=== PATIENT | female | born 1950 | race African-American/Black ===

== ENCOUNTER → 2018-07-28 11:23 | Outpatient (CLI) | payer OTHER, SELFPAY ==
--- NOTE | 2018-07-28 | DI.MG.S_ITS ---
BILATERAL DIGITAL SCREENING MAMMOGRAM 3D/2D WITH CAD POST LUMPECTOMY: 07/28/2018 CLINICAL: Routine screening. Personal history of left breast cancer. Comparison is made to exams dated: 07/01/2017 mammogram, 06/19/2016 mammogram, and 06/18/2015 mammogram - [facility]. There are scattered fibroglandular elements in both breasts. Current study was also evaluated with a Computer Aided Detection (CAD) system. There are benign post operative findings in the left breast with peripherally rim calcified fat necrosis noted. There also are benign vascular calcifications in the right breast. No significant masses, calcifications, or other findings are seen in either breast. There has been no significant interval change. IMPRESSION: There is no mammographic evidence of malignancy. A 1 year screening mammogram is recommended. This exam was interpreted at Station ID: [id number]. NOTE: For mammograms, a report in lay terms will be sent to the patient. Approximately 15% of breast malignancies will not be visualized mammographically. In the management of a palpable breast mass, a negative mammogram must not discourage biopsy of a clinically suspicious lesion. Electronically Signed By: Jaret Saab M.D. ecl/:07/28/2018 17:27:06 copy to: LUIS ENRIQUE ALEXIS copy to: SARAH MCCULLOUGH letter sent: Normal Exam ACR BI-RADS Category 2: Benign Finding(s) 3342F
== END ==
PROVIDERS: Family Provider Nurse Practitioner Gerontology; PCP Internal Medicine Hematology & Oncology; Visit Provider Family Medicine
DX: Z12.31 Encounter for screening mammogram for malignant neoplasm of breast (principal); Z85.3 Personal history of malignant neoplasm of breast
CPT/HCPCS: 77063; 77067

== ENCOUNTER → 2018-12-26 09:35 | Outpatient (CLI) | payer OTHER, SELFPAY ==
--- NOTE | 2018-12-26 09:37 | DI.US.S_ITS ---
LIMITED ULTRASOUND OF LEFT BREAST: 12/26/2018 CLINICAL: Palpable left breast lump. Palpable left breast lump by physician. Comparison is made to exams dated: 07/28/2018 mammogram, 07/01/2017 mammogram, 06/19/2016 mammogram, 08/13/2015 breast MRI, 06/18/2015 mammogram, and 01/25/2015 mammogram - [facility]. Color flow and real-time ultrasound of the left breast 1-3 o'clock region were performed on the areas of interest. There is a benign 3.1 cm x 2 cm x 1.9 cm peripherally calcified oval mass with indistinct margins in the left breast at 3 o'clock anterior depth. This oval mass is hyperechoic with posterior acoustic shadowing. This correlates as palpated and with mammography findings. Color flow imaging demonstrates that there is no vascularity present. There also is a benign irregular post-surgical scar with indistinct margins in the left breast at 1:30 o'clock posterior depth. This irregular post-surgical scar is hypoechoic and extends to the skin. This correlates as palpated. Color flow imaging demonstrates that there is no vascularity present. IMPRESSION: BENIGN There is no sonographic evidence of malignancy. The 3.1 cm x 2 cm x 1.9 cm oval mass in the left breast at 3 o'clock anterior depth is consistent with fat necrosis and is benign. The irregular post-surgical scar in the left breast at 1:30 o'clock posterior depth is benign. There is no abnormality seen in the left breast to correspond with the palpable abnormality at 2 o'clock. Clinical followup is recommended of palpable abnormalities. A 1 year screening mammogram is recommended. This exam was interpreted at Station ID: [id number]. Electronically Signed By: Gera Villalobos M.D. ddvince/:12/27/2018 09:05:53 copy to: LUIS ENRIQUE ALEXIS copy to: SARAH MCCULLOUGH letter sent: Clinical Evaluation Ultrasound BI-RADS: 2 Benign
== END ==
PROVIDERS: Family Provider Family Medicine; PCP Family Medicine; Visit Provider Internal Medicine Hematology & Oncology
DX: D05.10 Intraductal carcinoma in situ of unspecified breast (principal)
CPT/HCPCS: 76642

== ENCOUNTER → 2019-09-30 14:07 | Outpatient (CLI) | payer OTHER, SELFPAY ==
--- NOTE | 2019-09-30 14:08 | DI.MG.S_ITS ---
BILATERAL DIGITAL SCREENING MAMMOGRAM 3D/2D WITH CAD POST LUMPECTOMY: 09/30/2019 CLINICAL: Routine screening. Personal history of left breast cancer. Comparison is made to exams dated: 07/28/2018 mammogram, 07/01/2017 mammogram, and 06/19/2016 mammogram - [facility]. There are scattered fibroglandular elements in both breasts. Current study was also evaluated with a Computer Aided Detection (CAD) system. There are benign calcifications in the left breast. There also are benign vascular calcifications in the right breast. Additionally, there are benign post operative findings in the left breast. No significant masses, calcifications, or other findings are seen in either breast. There has been no significant interval change. IMPRESSION: There is no mammographic evidence of malignancy. A 1 year screening mammogram is recommended. This exam was interpreted at Station ID: [id number]. NOTE: For mammograms, a report in lay terms will be sent to the patient. Approximately 15% of breast malignancies will not be visualized mammographically. In the management of a palpable breast mass, a negative mammogram must not discourage biopsy of a clinically suspicious lesion. Electronically Signed By: oM villagomez/marilyn:10/02/2019 08:18:48 copy to: Stephen Victor copy to: SARAH MCCULLOUGH letter sent: Normal Exam ACR BI-RADS Category 2: Benign Finding(s) 3342F
== END ==
PROVIDERS: Family Provider Family Medicine; PCP Family Medicine; Referring Provider Family Medicine; Visit Provider Internal Medicine Hematology & Oncology
DX: Z12.31 Encounter for screening mammogram for malignant neoplasm of breast (principal); Z85.3 Personal history of malignant neoplasm of breast
CPT/HCPCS: 77063; 77067

== ENCOUNTER → 2020-06-04 10:11 | Outpatient (CLI) | payer OTHER, SELFPAY | PROVIDERS: Family Provider Family Medicine; PCP Family Medicine; Referring Provider Family Medicine; Visit Provider Family Medicine | DX: Z78.0 Asymptomatic menopausal state (principal); Z85.3 Personal history of malignant neoplasm of breast | CPT/HCPCS: 77080 ==

== ENCOUNTER → 2020-10-03 11:11 | Outpatient (CLI) | payer OTHER, SELFPAY ==
--- NOTE | 2020-10-03 11:12 | DI.MG.S_ITS ---
BILATERAL DIGITAL SCREENING MAMMOGRAM 3D/2D WITH CAD: 10/03/2020 CLINICAL: Routine screening. Personal history of left breast cancer. Comparison is made to exams dated: 09/30/2019 mammogram, 07/28/2018 mammogram, and 07/01/2017 mammogram - [facility]. There are scattered fibroglandular elements in both breasts. Current study was also evaluated with a Computer Aided Detection (CAD) system. There are benign calcifications in the left breast. There also are benign vascular calcifications in the right breast. Additionally, there are benign post operative findings in the left breast. No significant masses, calcifications, or other findings are seen in either breast. There has been no significant interval change. IMPRESSION: BENIGN There is no mammographic evidence of malignancy. A 1 year screening mammogram is recommended. This exam was interpreted at Station ID: [id number]. NOTE: For mammograms, a report in lay terms will be sent to the patient. Approximately 15% of breast malignancies will not be visualized mammographically. In the management of a palpable breast mass, a negative mammogram must not discourage biopsy of a clinically suspicious lesion. Electronically Signed By: Samantha mcclellan/marilyn:10/03/2020 13:44:15 copy to: Stephen Victor copy to: SARAH MCCULLOUGH letter sent: Normal Exam ACR BI-RADS Category 2: Benign Finding(s) 3342F
== END ==
PROVIDERS: Family Provider Family Medicine; PCP Family Medicine; Referring Provider Internal Medicine Hematology & Oncology; Visit Provider Internal Medicine Hematology & Oncology
DX: Z12.31 Encounter for screening mammogram for malignant neoplasm of breast (principal); D05.12 Intraductal carcinoma in situ of left breast
CPT/HCPCS: 77063; 77067

== ENCOUNTER → 2021-10-09 12:41 | Outpatient (CLI) | payer OTHER, SELFPAY ==
--- NOTE | 2021-10-09 12:43 | DI.MG.S_ITS ---
BILATERAL DIGITAL SCREENING MAMMOGRAM 3D/2D WITH CAD POST LUMPECTOMY: 10/09/2021 CLINICAL: Routine screening. Personal history of left breast cancer. Comparison is made to exams dated: 10/03/2020 mammogram, 09/30/2019 mammogram, 07/28/2018 mammogram, 07/01/2017 mammogram, and 06/19/2016 mammogram - [facility]. There are scattered fibroglandular elements in both breasts. Current study was also evaluated with a Computer Aided Detection (CAD) system. There are benign calcifications in the left breast. There also are benign vascular calcifications in the right breast. Additionally, there are benign post operative findings in the left breast. No significant masses, calcifications, or other findings are seen in either breast. There has been no significant interval change. IMPRESSION: BENIGN There is no mammographic evidence of malignancy. A 1 year screening mammogram is recommended. This exam was interpreted at Station ID: [id number]. NOTE: For mammograms, a report in lay terms will be sent to the patient. Approximately 15% of breast malignancies will not be visualized mammographically. In the management of a palpable breast mass, a negative mammogram must not discourage biopsy of a clinically suspicious lesion. Electronically Signed By: Teddy barnard/marilyn:10/09/2021 13:29:05 copy to: Stephen Victor copy to: SARAH MCCULLOUGH letter sent: Normal Exam ACR BI-RADS Category 2: Benign Finding(s) 3342F
== END ==
PROVIDERS: Family Provider Family Medicine; PCP Family Medicine; Referring Provider Internal Medicine Hematology & Oncology; Visit Provider Internal Medicine Hematology & Oncology
DX: Z12.31 Encounter for screening mammogram for malignant neoplasm of breast (principal); Z86.000 Personal history of in-situ neoplasm of breast
CPT/HCPCS: 77063; 77067

== ENCOUNTER → 2022-10-15 09:53 | Outpatient (CLI) | payer OTHER, SELFPAY ==
--- NOTE | 2022-10-15 09:54 | DI.MG.S_ITS ---
BILATERAL DIGITAL SCREENING MAMMOGRAM 3D/2D WITH CAD: 10/15/2022 CLINICAL: Routine screening. Personal history of left breast cancer. Comparison is made to exams dated: 10/09/2021 mammogram, 10/03/2020 mammogram, 09/30/2019 mammogram, and 07/28/2018 mammogram - [facility]. There are scattered areas of fibroglandular density in both breasts (category b / 25%-50% glandular tissue). Current study was also evaluated with a Computer Aided Detection (CAD) system. There are benign calcifications in the left breast. There also are benign vascular calcifications in the right breast. Additionally, there are benign post operative findings in the left breast. No significant masses, calcifications, or other findings are seen in either breast. There has been no significant interval change. IMPRESSION: BENIGN There is no mammographic evidence of malignancy. A 1 year screening mammogram is recommended. This exam was interpreted at Station ID: [id number]. NOTE: For mammograms, a report in lay terms will be sent to the patient. Approximately 15% of breast malignancies will not be visualized mammographically. In the management of a palpable breast mass, a negative mammogram must not discourage biopsy of a clinically suspicious lesion. Electronically Signed By: Teddy barnard/marilyn:10/15/2022 13:25:09 copy to: Stephen Victor copy to: SARAH MCCULLOUGH letter sent: Normal Exam ACR BI-RADS Category 2: Benign Finding(s) 3342F
== END ==
PROVIDERS: Family Provider Family Medicine; PCP Nurse Practitioner; Referring Provider Nurse Practitioner; Visit Provider Nurse Practitioner
DX: Z12.31 Encounter for screening mammogram for malignant neoplasm of breast (principal); D05.12 Intraductal carcinoma in situ of left breast
CPT/HCPCS: 77063; 77067

== ENCOUNTER → 2023-06-15 12:26 | Outpatient (CLI) | payer OTHER, SELFPAY ==
--- NOTE | 2023-06-15 | DI.RAD.S_ITS ---
Bone Density Report Name: JOHNY AVILA Age: 72 Sex: Female Ethnicity: Black Date of : 1950 Indication: postmenopausal; screening for osteoporosis; Referring Provider: WILL JENKINS Study: Bone densitometry was performed. Exam Date: June 15, 2023 Accession number: [id number] Bone Density: Region BMD T-score Z-score Classification AP Spine(L1, L2, L3) 1.280 2.4 4.1 Normal Femoral Neck (Left) 0.783 -0.6 0.4 Normal Total Hip (Left) 0.893 -0.4 0.4 Normal Femoral Neck (Right) 0.858 0.1 0.9 Normal Total Hip (Right) 0.857 -0.7 0.2 Normal Total Hip Mean 0.875 -0.6 0.3 Normal World Health Organization criteria for BMD impression classify patients as: Normal (T-score at or above -1.0), Osteopenia (T-score between -1.0 and -2.5), or Osteoporosis (T-score at or below -2.5). 10-year Fracture Risk: FRAX not reported because: All T-scores for Spine Total, Hip Total, Femoral Neck at or above -1.0 Previous Exams: -- Region Exam Age BMD T-score BMD Change BMD Change Date g/cm2 vs Baseline vs Previous -- AP Spine (L1-L3) 06/15/2023 72 1.280 2.4 0.134 (11.7%)# 0.039 (3.1%)# 06/04/2020 69 1.241 2.0 0.095 (8.3%)* 0.095 (8.3%)* 05/14/2014 63 1.146 1.2 Total Hip(Left) 06/15/2023 72 0.893 -0.4 -0.040 (-4.3%)# 0.003 (0.3%)# 06/04/2020 69 0.890 -0.4 -0.042 (-4.5%)* -0.042 (-4.5%)* 05/14/2014 63 0.933 -0.1 Total Hip(Right) 06/15/2023 72 0.857 -0.7 0.001 (0.1%)# 0.006 (0.7%)# 06/04/2020 69 0.851 -0.7 -0.005 (-0.6%) -0.005 (-0.6%) 05/14/2014 63 0.857 -0.7 -- *Denotes significance at 95% confidence level, LSC for AP Spine = 0.022 g/cm2, LSC for Total Hip = 0.027 g/cm2 Rate of change results reflect vertebral levels common to all scans # Denotes dissimilar scan types or analysis methods Impression: The patient has normal bone mass. No significant bone loss was observed. Discussion: BONE DENSITY IS ABOVE THE MINIMUM DESIRABLE LEVEL AT ALL SKELETAL SITES TESTED. This patient's bone mineral density is above the minimum desirable level (T-score -1.0 or better) at all sites measured. The patient should follow a healthful lifestyle (good nutrition with adequate calcium and vitamin D, and appropriate weight-bearing exercise). Follow-Up: Consider repeating this study in 5 years or sooner if there is some new clinical indication. Reported by: HAMZAH CARTWRIGHT M.D. on 06/15/2023 12:46:00 PM.
== END ==
PROVIDERS: Family Provider Family Medicine; PCP Nurse Practitioner; Referring Provider Nurse Practitioner; Visit Provider Nurse Practitioner
DX: Z78.0 Asymptomatic menopausal state (principal); Z13.820 Encounter for screening for osteoporosis
CPT/HCPCS: 77080

== ENCOUNTER → 2023-11-12 12:41 | Outpatient (CLI) | payer OTHER, SELFPAY ==
--- NOTE | 2023-11-12 12:42 | DI.MG.S_ITS ---
BILATERAL DIGITAL SCREENING MAMMOGRAM 3D/2D WITH CAD: 11/12/2023 CLINICAL: Routine screening. Personal history of left breast cancer. Comparison is made to exams dated: 10/15/2022 mammogram, 10/09/2021 mammogram, and 10/03/2020 mammogram - [facility]. There are scattered areas of fibroglandular density in both breasts (category b / 25%-50% glandular tissue). Current study was also evaluated with a Computer Aided Detection (CAD) system. There are benign calcifications in the left breast. There also are benign vascular calcifications in the right breast. Additionally, there are benign post operative findings in the left breast. No significant masses, calcifications, or other findings are seen in either breast. There has been no significant interval change. IMPRESSION: BENIGN There is no mammographic evidence of malignancy. A 1 year screening mammogram is recommended. This exam was interpreted at Station ID: [id number]. NOTE: For mammograms, a report in lay terms will be sent to the patient. Approximately 15% of breast malignancies will not be visualized mammographically. In the management of a palpable breast mass, a negative mammogram must not discourage biopsy of a clinically suspicious lesion. Electronically Signed By: Jeremias duncan/marilyn:11/12/2023 13:52:50 copy to: Stephen Victor copy to: SARAH MCCULLOUGH letter sent: Normal Exam ACR BI-RADS Category 2: Benign Finding(s) 3342F
== END ==
LOC: MAMMO 12:41
PROVIDERS: Family Provider Family Medicine; PCP Nurse Practitioner; Referring Provider Nurse Practitioner; Visit Provider Nurse Practitioner
DX: Z12.31 Encounter for screening mammogram for malignant neoplasm of breast (principal); Z85.3 Personal history of malignant neoplasm of breast; R92.323 Mammographic fibroglandular density, bilateral breasts
CPT/HCPCS: 77063; 77067

== ENCOUNTER → 2024-08-30 11:46 | Outpatient (CLI) | payer OTHER, SELFPAY ==
--- NOTE | 2024-08-30 11:47 | DI.RAD.S_ITS ---
PROCEDURE: XR DEXA AXIAL SKELETON INDICATIONS: SCREEN COMPARISON: [facility], , XR DEXA AXIAL SKELETON, 06/15/2023, 12:37. [facility], CR, XR DEXA AXIAL SKELETON, 06/04/2020, 10:28. FINDINGS: Lumbar Spine (L4 excluded due to increased density): Bone mineral density 1.248 g/cm2, T score 2.1, previously 2.4. Left Femoral Neck: Bone mineral density 0.824 g/cm2, T score -0.2. Left Hip: Bone mineral density 0.877 g/cm2, T score -0.5, previously -0.4. Fracture Risk Calculation (when applicable): Not reported due to normal bone mineralization. (T score greater or equal to -1.0 to: NORMAL) (T score from -1.1 to -2.4: OSTEOPENIA) (T score less than or equal to -2.5: OSTEOPOROSIS) IMPRESSION: Normal bone mineralization. Follow-up guidelines as follows: Osteoporosis: Consider a repeat DEXA and Vertebral Fracture Assessment (VFA) exam in 2 years or sooner if medically necessary, to reassess this patient's status. Osteopenia: Consider a repeat DEXA in 2-3 years to reassess this patient's status, or if there is a new clinical indication. Normal: Consider a repeat DEXA in 5 years or sooner, or if there is a new clinical indication. All treatment decisions require clinical judgment and consideration of individual patient factors, including patient preferences, comorbidities, previous drug use, risk factors not captured in the FRAX model (e.g., frailty, falls, vitamin D deficiency, increased bone turnover, interval significant decline in bone density ) and possible under- or over-estimation of fracture risk by FRAX. In addition, the NOF Guide recommends that FDA-approved medical therapies be considered in postmenopausal women and men age >= 50 years with a: * Hip or vertebral (clinical or morphometric) fracture * T-score of <=-2.5 at the spine or hip * Ten-year fracture probability by FRAX of >= 3% for hip fracture or >=20% for major osteoporotic fracture. Dictated by: Shimon Paez M.D. on 08/30/2024 at 16:04 Approved by: Shimon Paez M.D. on 08/30/2024 at 16:05
--- NOTE | 2024-08-30 11:47 | DI.MG.S_ITS ---
MM diagnostic mammo BI, US breast RT limited: 08/30/2024 BI-RADS: 2 CLINICAL: 74-year old female for bilateral diagnostic mammogram and right diagnostic breast ultrasound. No Tyrer-Cuzick risk score calculation due to the patient's personal history of breast cancer. Patient reports a history of left breast carcinoma diagnosed at age 63. Status-post left lumpectomy with radiation therapy. No first-degree family history of breast cancer. The patient reports a palpable abnormality (3 months) in the right breast. PRIOR EXAMS 11/12/2023, 10/15/2022, 10/09/2021, 10/03/2020, 09/30/2019, 12/26/2018, 07/28/2018, 07/01/2017, 06/19/2016, 08/13/2015, 06/18/2015, 01/25/2015. MAMMOGRAPHY TECHNIQUE: 2D and 3D (tomosynthesis) digital mammographic views obtained, with additional images as needed for full coverage. Current study was also evaluated with a Computer Aided Detection (CAD) system. ULTRASOUND TECHNIQUE Real-time peguero scale imaging of the area of clinical interest was performed with image documentation. TARGETED Right Breast Ultrasound: Real-time ultrasound exam was performed focused to area of clinical and/or imaging concern. DENSITY B. There are scattered areas of fibroglandular density. MAMMOGRAPHY FINDINGS Right: A marker overlies the breast at the site of palpable abnormality; there is no underlying mammographic correlate. Left: There is an area of architectural distortion from post-surgical scarring with associated calcifications. ULTRASOUND FINDINGS Right: There is no sonographic correlate for the palpable abnormality. No suspicious sonographic finding present. IMPRESSION: Right * No evidence of malignancy. Left * No evidence of malignancy with benign findings. RECOMMENDATIONS Bilateral * Annual screening mammography. OVERALL ASSESSMENT CATEGORY BI-RADS-2: Benign. The [employer] recommends annual screening mammography beginning at age 40 for women with average risk of breast cancer. ELECTRONICALLY SIGNED: Jeremias Peña M.D. on 08/30/2024 at 08:57:53 PM PT Interpreting Station ID: [id number]
== END ==
PROVIDERS: Family Provider Family Medicine; PCP Nurse Practitioner; Referring Provider Nurse Practitioner; Visit Provider Nurse Practitioner
DX: N63.12 Unspecified lump in the right breast, upper inner quadrant (principal); Z85.3 Personal history of malignant neoplasm of breast; Z78.0 Asymptomatic menopausal state
CPT/HCPCS: 76642; 77066; 77080; G0279